=== PATIENT | male | born 1985 | race Caucasian/White ===

== ENCOUNTER → 2016-10-13 | Outpatient (CLI) | payer OTHER ==
--- NOTE | 2016-10-13 20:31 | CONS ---
DATE OF CONSULTATION: 10/13/2016 CONSULTATION/NEW PATIENT EVALUATION HISTORY OF PRESENT ILLNESS/SLEEP-WAKE EVALUATION: 31-year-old gentleman who has been evaluated at the sleep center for possible obstructive sleep apnea-hypopnea syndrome. SLEEP SCHEDULE: Patient's usual sleep schedule on working days is from midnight until around 7:30 a.m. on weekends he sleeps from about 2:00 a.m. until 8 or 9:00 a.m. gets out of bed around 10:00 a.m. FALLING ASLEEP: No problem with falling asleep. There is a TV in bedroom. DURING SLEEP: He sleeps on the side position with quite loud snoring, witnessed episodes of stopped breathing during sleep. Patient wakes up from sleep up to 4 times with choking, gasping for air, episodes of sleepwalking, nocturia, positive history of sleepwalking, episodes of sleepwalking, occasional episodes of sleep walking, the patient has had sleepwalking for about one year. DURING THE DAY/WAKE STATE: During the day patient feels sleepiness. [place] Sleepiness Scale significantly increased to 12. He wakes up tired, has difficulties to pay attention, falling asleep during the day. He has problems with memory, irritability, depression and anxiety. He may take one nap a day around 1:00 p.m. until 3:00 p.m. He may see dreams during naps. PAST MEDICAL HISTORY: Positive for hypertension and anxiety. Back pain. PAST SURGICAL HISTORY: Hernia repair. MEDICATIONS: 1. [place]. 2. Lisinopril. 3. Atenolol. 4. Xanax. 5. Simvastatin. 6. Adipex. SOCIAL HISTORY: Positive for smoking about 1 pack a day for 13 years. Alcohol consumption none. REVIEW OF SYSTEMS: Multiple awakenings from sleep, sleepiness during the day, increasing weight. No fevers. No double vision. No recent chest pain. No shortness of breath. No abdominal pain. No bleeding episodes. No blood in urine. No seizure episodes. FAMILY HISTORY: Hypertension, heart problems, hyperlipidemia, stroke, fibromyalgia, arthritis, asthma, emphysema, snoring, cancer, acid reflux, thyroid problems. PHYSICAL EXAMINATION: GENERAL: A 31-year-old [place] gentleman without distress. BP on the right arm 162/109. On the left arm is 164/99, HR 74, RR 16. Height 5 foot 9 weight 289, BMI 42.6. Neck night 19-1/4 inch in circumference. Temp is 97.2. Oxygen saturation at room air 94%. HEENT: PERRLA, EOMI oropharynx low position of soft palate. ABDOMEN: Obese. NECK: Supple. No JVD. Thyroid is not palpable. LUNGS: Clear to percussion and to auscultation. Good air exchange. No wheezing or rhonchi. HEART: S1, S2 regular. No murmurs, gallops or rubs. ABDOMEN: Soft and nontender. Bowel sounds are present. No organomegaly appreciated. EXTREMITIES: No clubbing or cyanosis. 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 Cranial nerves 2 to 7 intact. There is no fasciculation or atrophy noted. No focal deficits observed. IMPRESSION: 1. Snoring, witnessed episodes of stopped breathing during sleep, low position of soft palate, multiple awakenings from sleep, sleepiness during the day, obstructive sleep apnea/hypopnea syndrome. 2. Sleepiness during the day the patient may take naps positive history of dreaming during the differential diagnosis would include hypersomnia after sleep apnea will be treated. 3. Obesity. 4. Hypertension. 5. Anxiety. 6. Back pain. 7. Status post hernia repair. 8. Patient is a smoker for 13 years. Smoking cessation program. PLAN: 1. Polysomnography for evaluation of patient's breathing during sleep. 2. CPAP/BiPAP titration if sleep study confirms obstructive sleep apnea-hypopnea syndrome. 3. Preferable position during sleep on the side. 4. No driving if patient feels any sleepiness. Patient is aware of civil and criminal liability for unsafe driving. 5. I will see patient for follow-up visit to explain results of the testing and following plan. 6. Smoking cessation program. Thank you very much for allowing me to participate in the management of your patient. Sincerely, Johnny Navas MD, PhD, FAASM. Diplomat of [place] [employer], Sleep Medicine Board by [place] [employer] [place] [employer] Level Vial Setter of [facility] [place]
== END | disposition home or self-care (01) ==
LOC: SLEEP 16:15
PROVIDERS: ATTEND Internal Medicine
DX: G47.33 Obstructive sleep apnea (adult) (pediatric) (principal); E66.9 Obesity, unspecified; Z68.41 Body mass index [BMI] 40.0-44.9, adult; I10 Essential (primary) hypertension; F41.9 Anxiety disorder, unspecified; M54.9 Dorsalgia, unspecified; F17.200 Nicotine dependence, unspecified, uncomplicated; Z98.890 Other specified postprocedural states; Z79.899 Other long term (current) drug therapy
CPT/HCPCS: 99211

== ENCOUNTER → 2017-04-06 | Outpatient (CLI) | payer OTHER ==
--- NOTE | 2017-04-07 09:35 | PN ---
DATE OF SERVICE: 04/06/2017 A 31-year-old gentleman who has been followed in the Sleep Center for treatment of severe obstructive sleep apnea-hypopnea syndrome. I discussed results of sleep studies with patient in details. Diagnostic sleep study showed severe sleep apnea then patient had CPAP titration. I recommended CPAP pressure 11 cm of water. Patient received his CPAP unit and able to use it without significant problems related to the pressure or mask. Patient brought his CPAP unit with him. I checked CPAP unit. CPAP pressures are 11 cm of water. Usage is 18 out of 30 nights for more than 4 hours. Patient feels much better with machine. He sleeps well. He feels better during the day. Apnea-hypopnea index reading from the machine only 2.8. [place] sleepiness scale today is only 1. No significant leak; it is only 13 liters per minute, which is acceptable. MEDICATIONS: Lisinopril, atenolol, alprazolam, [place], Adipex, simvastatin, prednisone. During physical exam, the patient is in no distress. VITAL SIGNS: BP 154/105, HR 70, RR 16, weight 287, temp 98.8, oxygen saturation on room air 96%. HEENT: PERRLA, EOMI. Evaluation of oropharynx showed extremely low position of soft palate. NECK: Supple. No JVD. Thyroid is not palpable. LUNGS: Clear to percussion and to auscultation. Good air exchange. No wheezing or rhonchi. HEART: S1, S2 regular. No murmurs, gallops or rubs. ABDOMEN: obese. Soft and nontender. Bowel sounds are present. No organomegaly appreciated. EXTREMITIES: No cyanosis or clubbing. 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 Cranial nerves II through VII intact. There is no fasciculation or atrophy noted. No focal deficits observed. IMPRESSION: 1. Severe obstructive sleep apnea, hypopnea syndrome. Apnea-hypopnea index 39.5 with oxygen desaturation to 65.2% on control with CPAP at 11 cm of water. Patient demonstrated borderline compliance. Benefiting from treatment. 2. Obesity. 3. Hypertension. 4. Anxiety. 5. Back problems. 6. Status post kidney repair. 7. Smoker for 30-years. PLAN: 1. Patient will continue to use CPAP equipment every night for the whole night. 2. Losing weight. 3. Sleep hygiene in bed for at least 8 hours. 4. No driving if feeling any sleepiness. 5. Preferably smoking cessation problem. Thank you very much for allowing me to participate in the management of your patient. Sincerely, Greer Navas MD, PhD, FAASM Diplomat of [place] [employer], Sleep Medicine Board by [place] [employer] [employer] Natural Resources Instructor of [facility]
== END | disposition home or self-care (01) ==
LOC: SLEEP 16:48
PROVIDERS: ATTEND Internal Medicine
DX: G47.33 Obstructive sleep apnea (adult) (pediatric) (principal); E66.9 Obesity, unspecified; I10 Essential (primary) hypertension; F41.9 Anxiety disorder, unspecified; F17.200 Nicotine dependence, unspecified, uncomplicated; Z79.899 Other long term (current) drug therapy; Z79.51 Long term (current) use of inhaled steroids

== ENCOUNTER → 2017-07-06 | Outpatient (CLI) | payer OTHER ==
--- NOTE | 2017-07-06 15:06 | US ---
EXAMINATION TYPE: US kidneys/renal and bladder DATE OF EXAM: 07/06/2017 COMPARISON: US, MRI CLINICAL HISTORY: Low back pain, M54.5; Patient stated has hematuria, left lateral and flank pain rad iating to left pelvis past couple of days and symptoms diminishing since passing renal stones; dysuri a EXAM MEASUREMENTS: Right Kidney: 12.4 x 6.4 x 5.7 cm Left Kidney: 13.1 x 6.0 x 5.4 cm Post Void Residual Volume: 1.8 mL Right Kidney: No hydronephrosis or masses seen Left Kidney: No hydronephrosis or masses seen Bladder: not fully distended; multiple hyperechoic foci (calcifications) noted at left ureterovesicul ar junction with largest focus = 0.7 x 0.7 x 0.5cm; additional hyperechoic focus noted at prostate ur ethral level = 1.3 x 1.5 x 0.7cm Bilateral Jets seen: Yes Normal Post Void Residual: Yes There is no evidence for hydronephrosis at this point in time. No nephrolithiasis is seen. No garth s are identified. The urinary bladder is anechoic. Bilateral ureteral jets are seen. IMPRESSION: Incompletely obstructing calculi at the distal left ureterovesicular junction with the largest measur ing 7 mm and no resultant hydronephrosis of either kidney. Additional calculus measuring up to 1.5 cm is seen near the prosthetic urethra and could be ureteral or within the prostate gland. A Yellow message has been communicated to Ubaldo Zaldivar DO via the [employer] Critical Result system on 07/06/2017 1:36 PM, Message ID [id number].
== END | disposition home or self-care (01) ==
LOC: RADUSWWP 12:29
PROVIDERS: ATTEND Internal Medicine
DX: N20.1 Calculus of ureter (principal); N21.1 Calculus in urethra
CPT/HCPCS: 76770

== ENCOUNTER → 2017-07-07 | Outpatient (CLI) | payer OTHER ==
--- NOTE | 2017-07-07 14:36 | XR ---
Abdomen HISTORY: Kidney stone, N20.0 Frontal view of the abdomen on 2 images correlated to ultrasound 07/06/2017 Lung bases are clear. No pneumoperitoneum or bowel obstruction. Retained fecal debris present within the colon. There are indeterminate calcifications within the pelvis. IMPRESSION: There may be distal ureteral calculus.
== END | disposition home or self-care (01) ==
LOC: RADXRMAIN 14:06
PROVIDERS: ATTEND Urology
DX: N20.0 Calculus of kidney (principal)
CPT/HCPCS: 74000

== ENCOUNTER → 2018-12-17 | Day surgery (SDC) | payer OTHER ==
[2018-12-12 16:02] VITALS: BMI 41.8
[~2018-12-17] MED LIST: ALPRAZolam 0.25 MG TAB PO PRN; ASPIRIN 325 MG TAB PO ONE; ATORVASTATIN 80 MG TAB PO STA; HYDROcodone/APAP 5-325MG 1 EACH TAB PO PRN; IOPAMIDOL-370 125ML BTL INJ ONE; IOPAMIDOL-370 50ML BTL INJ ONE; LIDOCAINE 1% INJ 10MG/ML (20 ML MDV) SQ ONE; NICOTINE 14MG/24HR PATCH TRANSDERM STA; NITROGLYCERIN SL TABS 0.4 MG TAB SUBLINGUAL ONE; RX INFO: IV CONTRAST WAS GIVEN 1 EACH MISC MISCELLANE PRN; SODIUM CHLORIDE 0.9% 1,000 ML IV SCH; SODIUM CHLORIDE 0.9% 1,000 ML in EMPTY BAG 1 BAG IV ONE; fentaNYL (PF) 50 MCG/ML 2 ML AMP IV ONE; hydrALAZINE HCL 20 MG/ML 1 ML VIAL IV ONE
[2018-12-17 11:47] LABS: Basophils # (A) 0.1 k/uL (0-0.2); Basophils % (A) 1 %; Eosinophils # (A) 0.1 k/uL (0-0.7); Eosinophils % (A) 2 %; HCT 47.4 % (39.0-53.0); HGB 15.8 gm/dL (13.0-17.5); Lymphocytes # (A) 2.4 k/uL (1.0-4.8); Lymphocytes % (A) 25 %; MCH 30.5 pg (25.0-35.0); MCHC 33.3 g/dL (31.0-37.0); MCV 91.8 fL (80.0-100.0); Mean Platelet Volume 7.2; Monocytes # (A) 0.6 k/uL (0-1.0); Monocytes % (A) 6 %; Neutrophils % (A) 64 %; Platelet Count 239 k/uL (150-450); RBC 5.16 m/uL (4.30-5.90); RDW 13.9 % (11.5-15.5); WBC 9.3 k/uL (3.8-10.6)
[2018-12-17 11:51] VITALS: RESP 18; TEMP 96.2
[2018-12-17 11:59] LABS: Anion Gap 7 mmol/L; Blood Urea Nitrogen 10 mg/dL (9-20); Calcium 9.4 mg/dL (8.4-10.2); Carbon Dioxide 27 mmol/L (22-30); Chloride 107 mmol/L (98-107); Glucose 97 mg/dL (74-99); Potassium 4.4 mmol/L (3.5-5.1); Sodium 141 mmol/L (137-145)
[2018-12-17] MEDS: MIDAZOLAM (PF) 2 MG/2 ML VIAL IV ONE ×2 (12:26→12:34)
--- NOTE | 2018-12-17 13:11 | CC ---
CARDIAC CATHETERIZATION REPORT Mr. Reynoso is a 33-year-old gentleman who was admitted to the [facility] with symptoms of chest pain and shortness of breath, uncontrolled hypertension. Patient had a significantly elevated blood pressure, which was controlled with the medication and was treated for pneumonia. EKG showed diffuse ST-T changes suggestive of left ventricular hypertrophy with a strain pattern, underlying ischemia cannot be entirely excluded. Patient had a mild elevation in the troponin which could be secondary to hypertension. In view of the significant EKG changes, patient was recommended to have a cardiac catheterization for definitive diagnosis to rule out any significant underlying coronary artery disease. PROCEDURE THE: Right groin was prepped and draped in the usual manner and the right femoral artery was entered using Seldinger technique. Under ultrasound guidance and micropuncture needle, #6-Bengali sheath was placed in. Selective coronary angiography was then performed in multiple projections and the left ventriculography was performed in 30-degree MYRICK projection. Patient tolerated the procedure well. Sheath was removed and good hemostasis was achieved with the use of Angio-Seal. Moderate sedation was used, sedation time was 25 minutes. HEMODYNAMICS: The left ventricular end-diastolic pressure is 12 to 16 mmHg prior to angiography. No gradient is noted across the aortic valve. SELECTIVE CORONARY ANGIOGRAPHY: Left main coronary artery is normal and patent. LAD is a good caliber blood vessel and gives rise to a good size diagonal branch. LAD and its branches are normal. There is a good-sized intermediate branch which is normal. Circumflex coronary artery gives rise to a small size obtuse marginal branch and it is nondominant, it is normal. Right coronary artery gives rise to the posterior descending artery, dominant in distribution and it is normal. Left ventriculography reveals a normal left ventricular systolic function with the ejection fraction more than 65%. IMPRESSION: This study reveals normal coronary arteries. Left ventricular systolic function is normal. The patient has electrocardiographic changes are suggestive of mild hypertrophic cardiomyopathy. Further evaluation with an MRI may be helpful to rule out any significant infiltrative or hypertrophic cardiomyopathy and a symmetrical hypertrophic cardiomyopathy. MMODL / IJN: [id number] /
[2018-12-17 16:47] VITALS: PULSE 91
[2018-12-17 17:38] VITALS: BP 138/78
== END ==
LOC: CATHCVL 11:06
PROVIDERS: ATTEND Internal Medicine Cardiovascular Disease
DX: R94.31 Abnormal electrocardiogram [ECG] [EKG] (principal); R79.89 Other specified abnormal findings of blood chemistry; R03.0 Elevated blood-pressure reading, without diagnosis of hypertension; Z79.899 Other long term (current) drug therapy
CPT/HCPCS: 93458; 76937; 80048; 85025; C1760; C1894; C1769 ×2; J0360; J2001; J3010; Q9967 ×2; J2250